=== PATIENT | female | born 1985 | race Caucasian/White ===

== ENCOUNTER → 2024-09-03 08:39 | Outpatient (CLI) | payer OTHER, SELFPAY ==
--- NOTE | 2024-09-03 08:42 | DI.MRI.S_ITS ---
PROCEDURE: MR HEAD/BRAIN WO/W CON INDICATIONS: FAM HX MS,VISION DISTURBANCE,PARESTHESIA HAND-FOOT TECHNIQUE: Noncontrast sagittal and axial FLAIR, axial and coronal T2 fast spin echo, axial VIBE, axial gradient echo, axial diffusion and ADC through the brain. After the administration of contrast, axial and coronal and sagittal VIBE with fat saturation through the brain. COMPARISON: None. FINDINGS: Image quality: Excellent. CSF spaces: Ventricles are normal in size and shape. Basal cisterns are patent. No extra-axial fluid collections. Brain: Multiple T2 hyperintense lesions within the supratentorial white matter. There is involvement of the corpus callosum. Many lesions demonstrate a perpendicular orientation from the lateral ventricles. Larger lesions demonstrate T1 hypointense signal. Few small infratentorial lesions are identified. No intracranial bleeds or mass effects. You-white matter interface appears intact. No abnormal intracranial enhancement. Diffusion weighted images show no acute ischemic insults. Brainstem appears normal. Normal intravascular flow voids are present. Skull and face: Calvarial marrow signal is normal. Orbits appear normal. Sinuses: Mild diffuse paranasal sinus mucosal thickening. The mastoids are clear. IMPRESSION: Multiple T2/FLAIR hyperintense lesions in a distribution consistent with multiple sclerosis. No enhancing lesions are seen. Dictated by: Adam Malik M.D. on 09/03/2024 at 13:55 Approved by: Adam Malik M.D. on 09/03/2024 at 14:01
--- NOTE | 2024-09-03 08:42 | DI.MRI.S_ITS ---
PROCEDURE: MR THORACIC SPINE WO/W CON INDICATIONS: FAM HX MS,VISION DISTURBANCE,PARESTHESIA HAND-FOOT TECHNIQUE: Noncontrast sagittal T1 spin echo and T2 fast spin echo, sagittal STIR, axial T1 and T2 fast spin echo through the thoracic spine. After the administration of contrast, axial and sagittal T1 spin echo with fat saturation through the thoracic spine. COMPARISON: None. FINDINGS: Image quality: Excellent. Alignment and curvature: There is normal bony alignment. Marrow: Scattered vertebral body hemangiomas including a likely atypical hemangioma involving the T1 vertebral body.. No acute vertebral body compression fractures. Spinal cord: Small T2 hyperintense lesion within the cord at T10 (26/8). No abnormal enhancement. Paraspinous soft tissues: No paravertebral masses or abnormal enhancement. Miscellaneous: Prominent likely posterior epidural fat spanning C3 through C5 which either demonstrates enhancement or does not saturate out on fat saturation images (series 37, image 8). Central canal and foramina appear widely patent at all scanned levels. IMPRESSION: Small T2 hyperintense lesion within the thoracic cord at T10. No abnormal enhancement. No significant degenerative changes. Prominent likely posterior epidural fat spanning C3 through C5 which either demonstrates enhancement or does not saturate out on fat saturation images. This is of uncertain etiology and attention on follow-up is recommended. Dictated by: Adam Malik M.D. on 09/03/2024 at 14:06 Approved by: Adam Malik M.D. on 09/03/2024 at 14:12
--- NOTE | 2024-09-03 08:42 | DI.MRI.S_ITS ---
PROCEDURE: MR CERVICAL SPINE WO/W CON INDICATIONS: FAM HX MS,VISION DISTURBANCE,PARESTHESIA HAND-FOOT TECHNIQUE: Noncontrast sagittal T1 spin echo and T2 fast spin echo, sagittal STIR, sagittal PD fast spin echo, foraminal oblique sagittal T2 fast spin echo, axial gradient echo or T2 fast spin echo through the cervical spine. After the administration of contrast, sagittal and axial T1 spin echo with fat saturation through the cervical spine. COMPARISON: None. FINDINGS: Image quality: Excellent. Alignment and curvature: Straightening of the normal cervical lordosis. Marrow: Lesions within the C6 and T1 vertebral bodies likely represent mildly atypical hemangiomas, attention on follow-up imaging. Spinal cord: T2 hyperintense lesion within the cord at C5-C6. No other definite cervical cord lesions are seen.. No suspicious intramedullary enhancement. No cerebellar tonsillar herniation. Paraspinous soft tissues: No paravertebral masses or suspicious enhancement. C2-C3: Normal appearance. C3-C4: Normal appearance. C4-C5: Normal appearance. C5-C6: Normal appearance. C6-C7: Normal appearance. C7-T1: Normal appearance. IMPRESSION: Lesion within the cervical spinal cord at C5-C6 consistent with multiple sclerosis. No enhancing lesions are identified. No significant degenerative changes. Likely atypical hemangiomas within the C6 and T1 vertebral bodies, attention on follow-up. Dictated by: Adam Malik M.D. on 09/03/2024 at 14:01 Approved by: Adam Malik M.D. on 09/03/2024 at 14:06
== END ==
PROVIDERS: PCP Registered Nurse; Referring Provider Registered Nurse; Visit Provider Registered Nurse
DX: H53.9 Unspecified visual disturbance (principal); G93.89 Other specified disorders of brain; M89.9 Disorder of bone, unspecified; R20.2 Paresthesia of skin; Z82.0 Family history of epilepsy and other diseases of the nervous system
CPT/HCPCS: 70553; 72156; 72157; A9579